=== PATIENT | male | born 1955 | race Two or more races ===

== ENCOUNTER 2023-02-19 18:47 | Emergency (ER) | payer MEDICARE, OTHER ==
[~2023-02-19] VITALS: Ht 193 cm; Wt 86.3 kg
[2023-02-19 21:04] VITALS: BP 145/79; PULSE 83; RESP 18; TEMP 98; O2SAT 99
== END 2023-02-19 23:02 | disposition home or self-care (01) ==
LOC: ER 18:47
DX: S63.591A Other specified sprain of right wrist, initial encounter (principal); S16.1XXA Strain of muscle, fascia and tendon at neck level, initial encounter; S00.81XA Abrasion of other part of head, initial encounter; W17.89XA Other fall from one level to another, initial encounter; Y93.89 Activity, other specified; Y92.89 Other specified places as the place of occurrence of the external cause; Y99.8 Other external cause status
CPT/HCPCS: 70450; 72125; 73110

== ENCOUNTER 2023-03-13 08:40 | Inpatient (IN) | payer MEDICARE, BC ==
[~2023-03-13] VITALS: Ht 193 cm; Wt 85.6 kg
[2023-03-13 09:49] VITALS: PULSE 75; RESP 18; O2SAT 99
[2023-03-13 09:51] LABS: Alanine Aminotransferase 10 U/L (7-40); Albumin 3.5 g/dL (3.2-4.8); Alkaline Phosphatase 47 U/L (46-116); Anion Gap 8 (5-15); Aspartate Aminotransferase 15 U/L (13-40); BUN/Creatinine Ratio 12.6 (10.0-20.0); Basophils # (auto) 0.1 10 ^3/uL (0-0.2); Basophils % (auto) 0.9 % (0.0-2.0); Bilirubin, Total 1.5 mg/dL (0.2-1.0); Blood Urea Nitrogen 11 mg/dL (9-23); Calcium 7.3 mg/dL (8.5-10.1); Carbon Dioxide 26 mmol/L (20-30); Chloride 106 mmol/L (98-107); Eosinophils # (auto) 0.1 10 ^3/uL (0-0.8); Eosinophils % (auto) 1.4 % (0.0-7.0); Glucose 79 mg/dL (74-106); Hematocrit 52.8 % (41.0-53.0); Hemoglobin 17.5 g/dL (13.5-17.5); Lymphocytes # (auto) 1.6 10 ^3/uL (0.4-5.4); Lymphocytes % (auto) 25.8 % (10.0-50.0); Mean Corpuscular Hgb Conc. 33.2 g/dL (32.0-36.0); Mean Corpuscular Volume 90.2 fL (80.0-100.0); Monocytes # (auto) 0.4 10 ^3/uL (0-1.3); Monocytes % (auto) 5.7 % (0.0-12.0); Neutrophils # (auto) 4.2 10 ^3/uL (1.6-8.6); Neutrophils % (auto) 66.2 % (37.0-80.0); Nucleated Red Blood Cells % 0.5 %; Potassium 4.4 mmol/L (3.5-5.1); Red Blood Cells 5.86 10^6/uL (4.5-5.90); Red Cell Distribution Width 13.7 % (11.8-14.3); Sodium 140 mmol/L (136-145); Total Protein 5.4 g/dL (5.7-8.2); White Blood Cell 6.3 10^3/uL (4.4-10.8)
[2023-03-13] MEDS ORDERED: ASPirin 81 mg TAB PO ONE (11:00)
[2023-03-13] MEDS ORDERED: TADA20TA47 PO (11:45)
[2023-03-13] MEDS ORDERED: NITROGLYCERIN 0.4 MG SL TAB SL PRN (11:45)
[2023-03-13] MEDS ORDERED: CYCL-611 PO (11:45)
[2023-03-13] MEDS ORDERED: CELE1CAP6 PO (11:45)
[2023-03-13] MEDS ORDERED: ACETAMINOPHEN 325 MG TAB PO PRN (11:45)
[2023-03-13] MEDS ORDERED: MORPHINE SULFATE INJ 2 MG/ml SYRG IV PRN (11:45)
[2023-03-13] MEDS: SODIUM CHLORIDE 0.9% 1,000 ML IV SCH (11:51)
[2023-03-13 12:16] LABS: Triglycerides 115 mg/dL (< 150)
[2023-03-13 12:17] LABS: LDL Cholesterol 90 mg/dL (< 100)
[2023-03-13 12:18] LABS: Cholesterol 136 mg/dL (< 200); HDL Cholesterol 35 mg/dL (40-59)
[2023-03-13] MEDS: METOPROLOL SUCCINATE XL 50 MG TAB PO SCH (15:20)
[2023-03-13 20:05] VITALS: PULSE 68; RESP 16; O2SAT 97
[2023-03-13] MEDS ORDERED: METOPROLOL TARTRATE 25 MG TAB PO SCH (22:00)
[2023-03-13] MEDS: ATORVASTATIN 20 MG TAB PO SCH (22:39)
[2023-03-13] MEDS: APIXABAN 5 MG TAB PO SCH (22:39)
[2023-03-14] MEDS: SODIUM CHLORIDE 0.9% 1,000 ML IV SCH (05:01)
[2023-03-14 05:22] LABS: Basophils # (auto) 0 10 ^3/uL (0-0.2); Basophils % (auto) 0.4 % (0.0-2.0); Eosinophils # (auto) 0.1 10 ^3/uL (0-0.8); Eosinophils % (auto) 1.4 % (0.0-7.0); Hematocrit 47.5 % (41.0-53.0); Hemoglobin 15.9 g/dL (13.5-17.5); Mean Corpuscular Hemoglobin 30.2 pg (28.0-32.0); Mean Corpuscular Hgb Conc. 33.5 g/dL (32.0-36.0); Mean Corpuscular Volume 90.3 fL (80.0-100.0); Monocytes # (auto) 0.5 10 ^3/uL (0-1.3); Monocytes % (auto) 7.2 % (0.0-12.0); Neutrophils # (auto) 4.2 10 ^3/uL (1.6-8.6); Nucleated Red Blood Cells % 0.1 %; Red Blood Cells 5.27 10^6/uL (4.5-5.90); Red Cell Distribution Width 13.8 % (11.8-14.3); White Blood Cell 6.8 10^3/uL (4.4-10.8)
[2023-03-14 05:37] LABS: Alanine Aminotransferase 12 U/L (7-40); Alkaline Phosphatase 55 U/L (46-116); Anion Gap 6 (5-15); BUN/Creatinine Ratio 18.9 (10.0-20.0); Blood Urea Nitrogen 18 mg/dL (9-23); Carbon Dioxide 26 mmol/L (20-30); Chloride 107 mmol/L (98-107); Glucose 92 mg/dL (74-106); Potassium 4.4 mmol/L (3.5-5.1); Sodium 139 mmol/L (136-145)
[2023-03-14 05:38] LABS: Albumin 4.1 g/dL (3.2-4.8); Aspartate Aminotransferase 12 U/L (13-40); Bilirubin, Total 2.1 mg/dL (0.2-1.0); Total Protein 6.4 g/dL (5.7-8.2)
[2023-03-14 09:31] VITALS: RESP 18; O2SAT 98
[2023-03-14] MEDS ORDERED: ASPirin 81 mg TAB PO SCH (10:00)
[2023-03-14] MEDS ORDERED: ENOXAPARIN SOD 40 MG/0.4 ML SYRINGE SC SCH (10:00)
[2023-03-14] MEDS: APIXABAN 5 MG TAB PO SCH ×2 (10:21→21:51)
[2023-03-14] MEDS: CELECOXIB 100 MG CAP PO SCH (10:21)
[2023-03-14] MEDS: METOPROLOL SUCCINATE XL 50 MG TAB PO SCH (10:26)
[2023-03-14 15:56] VITALS: PULSE 61; RESP 19; O2SAT 100
[2023-03-14 17:04] VITALS: BP 139/84; PULSE 61; RESP 19; TEMP 97.6; O2SAT 100
[2023-03-14 18:59] LABS: Urine WBC None Seen /hpf (0 - 3)
[2023-03-14 19:17] LABS: Urine Bacteria NONE SEEN /hpf (None Seen); Urine Blood Negative /uL (Negative); Urine Clarity Clear (Clear); Urine Color Colorless (Yellow); Urine Protein, UAD Negative (Negative); Urine Specific Gravity 1.012 (1.001-1.035); Urine Urobilinogen Normal (Negative); Urine pH 6.5 (5.0-8.0)
[2023-03-14 20:00] VITALS: PULSE 67; PULSE 75; RESP 16; O2SAT 98
[2023-03-14] MEDS: ATORVASTATIN 20 MG TAB PO SCH (21:53)
[2023-03-14 21:56] VITALS: BP 142/79; PULSE 67; RESP 16; TEMP 98.2; O2SAT 97
[2023-03-15 05:00] VITALS: BP 108/80; PULSE 52; RESP 16; TEMP 97.6; O2SAT 96
[2023-03-15 08:00] VITALS: BP 121/91; PULSE 66; PULSE 76; RESP 20; TEMP 98; O2SAT 96
[2023-03-15 09:00] VITALS: BP 121/91; PULSE 76; RESP 20; TEMP 98; O2SAT 96
[2023-03-15] MEDS: METOPROLOL SUCCINATE XL 50 MG TAB PO SCH (10:05)
[2023-03-15] MEDS: CELECOXIB 100 MG CAP PO SCH (10:05)
[2023-03-15] MEDS: APIXABAN 5 MG TAB PO SCH (10:05)
[2023-03-15] MEDS ORDERED: METO-6 PO (10:46)
[2023-03-15] MEDS ORDERED: APIX5TAB PO (10:46)
[2023-03-15 12:15] VITALS: BP 118/78; PULSE 76; TEMP 36.7
== END 2023-03-15 12:57 | disposition home or self-care (01) | DRG 309 ==
LOC: ER 08:40 → TELE 11:42 → TELE-WESTW 03-14 15:07
PROVIDERS: ADMIT Nurse Practitioner Family; ATTEND Internal Medicine
DX: I48.91 Unspecified atrial fibrillation (principal); D68.69 Other thrombophilia; I24.9 Acute ischemic heart disease, unspecified; K21.9 Gastro-esophageal reflux disease without esophagitis; M19.90 Unspecified osteoarthritis, unspecified site; I10 Essential (primary) hypertension; Z68.23 Body mass index [BMI] 23.0-23.9, adult; Z79.01 Long term (current) use of anticoagulants; Z79.899 Other long term (current) drug therapy; Z83.3 Family history of diabetes mellitus; Z85.820 Personal history of malignant melanoma of skin; Z85.828 Personal history of other malignant neoplasm of skin; Z87.891 Personal history of nicotine dependence
CPT/HCPCS: 36415; 71046; 80053; 80061; 81001; 83735; 84443; 84484; 85025; 85379; 87081; 93005; 93306; 93886; G0378